=== PATIENT | male | born 1970 | race Caucasian/White ===

== ENCOUNTER 2017-05-07 17:25 | Emergency (ER) | payer SELFPAY ==
--- NOTE | 2017-05-07 17:42 | PDOC ---
Rapid Medical Evaluation Time Seen by Provider: 05/07/17 17:39 Medical Evaluation: Allergies Allergy/AdvReac Type Severity Reaction Status Date / Time No Known Allergies Allergy Verified 05/07/17 17:39 I have performed a brief in-person evaluation of this patient. The patient presents with a chief complaint of: heart skipping beats today. Denies chest pain. HI 2 years ago with stent placement Pertinent physical exam findings: tachycardic with regular rhythm I have ordered the following: EKG, labs The patient will proceed to the ED for further evaluation. Senior Corporate Accountant is Dr. Flores
[2017-05-07 17:43] VITALS: TEMP 98; BMI 30.4
[2017-05-07 18:03] LABS: BASO % 1.2 % (0-2.0); EOS % 3.2 % (0-4.5); HEMATOCRIT 48.4 % (35.4-49); HEMOGLOBIN 16.1 GM/dL (11.7-16.9); LYMPH % 30.9 % (8-40); MCH 28.8 pg (25.7-33.7); MCHC 33.3 g/dl (32.0-35.9); MEAN CELL VOLUME 86.5 fl (80-96); MEAN PLT VOLUME 8.6 fl (7.5-11.1); MONO % 6.7 % (3.8-10.2); PLATELET COUNT 254 K/MM3 (134-434); RBC 5.59 M/mm3 (4.00-5.60); RDW 13.8 % (11.9-15.9); WHITE BLOOD COUNT 10.8 K/mm3 (4.0-10.0)
--- NOTE | 2017-05-07 18:15 | PDOC ---
History of Present Illness - General History Source: Patient Exam Limitations: No Limitations <Lupe Enriquez - Last Filed: 05/07/17 19:09> <Vanessa Davila - Last Filed: 05/07/17 22:59> - General Chief Complaint: Palpitations Stated Complaint: CHEST PAIN Time Seen by Provider: 05/07/17 17:39 - History of Present Illness Initial Comments: 05/07/17 18:45 The patient is a 46 year old male, with a significant past medical history of hypertension, hyperlipidemia, and an AL(3 year ago; s/p stent placement), who presents to the emergency department with intermittent palpitations since 06:00 this morning. The patient reports he was at work, when he began to feel his heart beating irregularly. Patient reports today was his last day at his current job, and has had a lot of added stress recently. Patient denies any associated chest pain, diaphoresis, palpitations, or lower extremity edema. Patient reports similar symptoms several months ago, for which he followed up with his PCP (Dr. Irwin) and Airport Maintenance Chief(Dr Browne), where he had a Nuclear stress test done, which was negative. Patient denies any recent weight loss, fever, chills, cough, headache, or dizziness. He endorses increased abdominal bloating, but denies any abdominal pain, nausea, vomiting, diarrhea, or constipation. He denies any dysuria, hematuria, frequency, or urgency. He reports travel to [place] about 1 month ago, but denies sick contacts. Allergies: NKDA Past Surgical History: Cardiac stentx1 Social History: Current everyday smoker. Social ETOH use. No recreational drug use PCP: Dr. Irwin Airport Maintenance Chief: Dr. Browne (Lupe Enriquez) Past History <Lupe Enriquez - Last Filed: 05/07/17 19:09> - Past Medical History Cardiac Disorders: Yes (AL) COPD: No HTN: Yes - Surgical History Cardiac Surgery: Yes (CARD STENT) - Suicide/Smoking/Psychosocial Hx Smoking History: Never smoked Have you smoked in the past 12 months: Yes Number of Cigarettes Smoked Daily: 4 Information on smoking cessation initiated: Yes Hx Alcohol Use: No Drug/Substance Use Hx: No Substance Use Type: None <Vanessa Davila - Last Filed: 05/07/17 22:59> - Past Medical History Allergies/Adverse Reactions: Allergies Allergy/AdvReac Type Severity Reaction Status Date / Time No Known Allergies Allergy Verified 05/07/17 17:39 Home Medications: Ambulatory Orders Aspirin 81 mg PO DAILY 05/07/17 Lisinopril [Prinivil] 5 mg PO DAILY 05/07/17 Metoprolol Tartrate [Lopressor -] 50 mg PO DAILY 05/07/17 Review of Systems - Review of Systems Able to Perform ROS?: Yes <Lupe Enriquez - Last Filed: 05/07/17 19:09> <Vanessa Davila - Last Filed: 05/07/17 22:59> - Review of Systems Comments:: 05/07/17 18:45 GENERAL/CONSTITUTIONAL: No fever or chills. No weakness. HEAD, EYES, EARS, NOSE AND THROAT: No change in vision. No ear pain or discharge. No sore throat. CARDIOVASCULAR: Yes palpitations. No chest pain or shortness of breath. RESPIRATORY: No cough, wheezing, or hemoptysis. GASTROINTESTINAL: Yes abdominal bloating. No abdominal pain, nausea, vomiting, diarrhea or constipation. GENITOURINARY: No dysuria, frequency, or change in urination. MUSCULOSKELETAL: No joint or muscle swelling or pain. No neck or back pain. SKIN: No rash NEUROLOGIC: No headache, vertigo, loss of consciousness, or change in strength/ sensation. ENDOCRINE: No increased thirst. No abnormal weight change. HEMATOLOGIC/LYMPHATIC: No anemia, easy bleeding, or history of blood clots. ALLERGIC/IMMUNOLOGIC: No hives or skin allergy. (Lupe Enriquez) *Physical Exam <Lupe Enriquez - Last Filed: 05/07/17 19:09> <Vanessa Davila - Last Filed: 05/07/17 22:59> - Vital Signs Last Vital Signs Temp Pulse Resp BP Pulse Ox 98.0 F 109 H 18 141/96 100 05/07/17 17:39 05/07/17 17:39 05/07/17 17:39 05/07/17 17:39 05/07/17 17:39 - Physical Exam Comments: 05/07/17 18:45 GENERAL: Awake, alert, and fully oriented, in no acute distress HEAD: No signs of trauma EYES: PERRLA, EOMI, sclera anicteric, conjunctiva clear ENT: Auricles normal inspection, hearing grossly normal, nares patent, oropharynx clear without exudates. Moist mucosa NECK: Normal ROM, supple, no lymphadenopathy, JVD, or masses LUNGS: Breath sounds equal, clear to auscultation bilaterally. No wheezes, and no crackles HEART: Tachycardic. Regular rhythm, normal S1 and S2, no murmurs, rubs or gallops ABDOMEN: Soft, nontender, normoactive bowel sounds. No guarding, no rebound. No masses EXTREMITIES: Normal range of motion, no edema. No clubbing or cyanosis. No cords, erythema, or tenderness NEUROLOGICAL: Cranial nerves II through XII grossly intact. Normal speech, normal gait SKIN: Warm, Dry, normal turgor, no rashes or lesions noted. (Lupe Enriquez) ED Treatment Course - LABORATORY CBC & Chemistry Diagram: 05/07/17 17:47 05/07/17 17:47 <Lupe Enriquez - Last Filed: 05/07/17 19:09> - LABORATORY CBC & Chemistry Diagram: 05/07/17 17:47 05/07/17 17:47 <Vanessa Davila - Last Filed: 05/07/17 22:59> - ADDITIONAL ORDERS Additional order review: Laboratory Results 05/07/17 05/07/17 05/07/17 21:55 21:20 17:47 PT with INR INR D-Dimer Cancelled Sodium Potassium Chloride Carbon Dioxide Anion Gap BUN Creatinine Creat Clearance w eGFR Random Glucose Calcium Total Bilirubin AST ALT Alkaline Phosphatase Creatine Kinase 2882 H Cancelled Creatine Kinase Index CK-MB (CK-2) Troponin I 0.02 Cancelled Total Protein Albumin TSH 05/07/17 05/07/17 05/07/17 17:47 17:47 17:47 PT with INR 11.30 INR 1.00 D-Dimer Sodium 138 Potassium 3.8 Chloride 105 Carbon Dioxide 25 Anion Gap 8 BUN 11 Creatinine 1.0 Creat Clearance w eGFR > 60 Random Glucose 102 Calcium 8.9 Total Bilirubin 0.8 AST 47 H ALT 74 Alkaline Phosphatase 44 L Creatine Kinase 3091 H Creatine Kinase Index 1.0 CK-MB (CK-2) 33.471 H Troponin I < 0.02 Total Protein 7.6 Albumin 4.5 TSH 0.93 05/07/17 17:47 RBC 5.59 MCV 86.5 MCHC 33.3 RDW 13.8 MPV 8.6 Neutrophils % 58.0 Lymphocytes % 30.9 Monocytes % 6.7 Eosinophils % 3.2 Basophils % 1.2 - Medications Given in the ED: ED Medications Discontinued Medications Generic Name Dose Route Start Last Admin Trade Name Merline PRN Reason Stop Dose Admin Sodium Chloride 2,000 ml 05/07/17 19:13 05/07/17 19:29 Normal Saline - IV 05/07/17 19:14 2,000 ml ONCE ONE Administration Sodium Chloride 1,000 ml 05/07/17 21:24 05/07/17 21:33 Normal Saline - IV 05/07/17 21:25 1,000 ml ONCE ONE Administration Medical Decision Making <Lupe Enriquez - Last Filed: 05/07/17 19:09> <Vanessa Davila - Last Filed: 05/07/17 22:59> - Medical Decision Making 05/07/17 19:41 Pt presents to the ED with palpitations. Denies other complaints. + persistent tachycardia. EKG shows sinus tachycardia. Differential included anemia, infection, hyperthyroidism, PE. Labs show normal TSH but elevated CK consistent with mild rhabdo. Will give IV hydration and recheck. Will consider d dimer to rule out PE if tachycardia is not resolved after IV hydration. 05/07/17 22:55 Tachycardia is resolved. Rhabdo somewhat improved after IV hydration. Recently in the ED with CK of 5000--statin stopped at that time. Will discharge home with instructions to follow up with his PMD and return to the ED for worsening symptoms. Patient will need a work up for persistently elevated CK. (Vanessa Davila) *DC/Admit/Observation/Transfer <Lupe Enriquez - Last Filed: 05/07/17 19:09> - Discharge Dispostion Admit: No <Vanessa Davila - Last Filed: 05/07/17 22:59> Diagnosis at time of Disposition: Palpitations Rhabdomyolysis Qualifiers: Rhabdomyolysis type: non-traumatic Qualified Code(s): M62.82 - Rhabdomyolysis - Discharge Dispostion Disposition: HOME Condition at time of disposition: Good - Patient Instructions Printed Discharge Instructions: DI for Rhabdomyolysis Additional Instructions: return to the ED for body or muscle aches, dark urine, abdominal pain, other new or worsening symptoms. Make sure that you follow up with your doctor--you have persistent mild rhabdomyolysis ( muscle breakdown) and you need further testing. Return for worsening palpitations, chest pain or shortness of breath. - Attestations Scribe Attestion: 05/07/17 18:45 Documentation prepared by Lupe Enriquez, acting as auditor medical claims for Vanessa Davila MD. (Lupe Enriquez)
[2017-05-07 18:17] LABS: PROTHROMBIN TIME (PATIENT) 11.3 SEC (9.98-11.88)
[2017-05-07 18:27] LABS: ALBUMIN 4.5 g/dl (3.4-5.0); ANION GAP 8 (8-16); BLOOD UREA NITROGEN 11 mg/dL (7-18); CALCIUM 8.9 mg/dL (8.5-10.1); CHLORIDE 105 mmol/L (98-107); CO2 25 mmol/L (21-32); GLUCOSE,RANDOM 102 mg/dL (74-106); POTASSIUM 3.8 mmol/L (3.5-5.1); SGOT/AST 47 U/L (15-37); SGPT/ALT 74 U/L (12-78); SODIUM 138 mmol/L (136-145)
[2017-05-07 18:40] LABS: ALK PHOS 44 U/L (45-117); BILIRUBIN,TOTAL 0.8 mg/dL (0.2-1.0); TOT PROT 7.6 g/dl (6.4-8.2)
[2017-05-07] MEDS ORDERED: SODIUM CHLORIDE 0.9% 1000 ML INFUS.BAG IV ONE ×2 (19:13→21:24)
[2017-05-07 23:03] VITALS: BP 134/70; PULSE 75
--- NOTE | 2017-05-08 08:52 | EKG ---
Test Reason : Blood Pressure : / mmHG Vent. Rate : 109 BPM Atrial Rate : 109 BPM P-R Int : 174 ms QRS Dur : 090 ms QT Int : 336 ms P-R-T Axes : 017 -07 022 degrees QTc Int : 452 ms SINUS TACHYCARDIA CANNOT RULE OUT ANTERIOR INFARCT , AGE UNDETERMINED ABNORMAL ECG NO PREVIOUS ECGS AVAILABLE Confirmed by RORO LEBLANC, SHANTELL ([id number]) on 05/08/2017 8:52:01 AM Referred By: Confirmed By:SHANTELL READ MD
== END 2017-05-07 23:07 | disposition home or self-care (01) ==
LOC: JER 17:25
DX: R00.2 Palpitations (principal); M62.82 Rhabdomyolysis; I25.10 Atherosclerotic heart disease of native coronary artery without angina pectoris; I10 Essential (primary) hypertension; Z95.5 Presence of coronary angioplasty implant and graft; I25.2 Old myocardial infarction; E78.00 Pure hypercholesterolemia, unspecified
CPT/HCPCS: 36415; 80053; 82550; 82553; 84443; 84484; 85025; 85610; 93005; 93010; 99284-25

== ENCOUNTER 2021-01-11 01:45 | Emergency (ER) | payer OTHER ==
[2021-01-11 02:08] VITALS: BMI 64.0
[2021-01-11] MEDS ORDERED: LACTATED RINGERS SOLUTION 1000 ML INFUS.BAG IV ONE (02:42)
[2021-01-11] MEDS ORDERED: ONDANSETRON 4 MG/2 ML VIAL IVPUSH ONE (02:42)
[2021-01-11 03:01] LABS: PH,URINE 5.5 (5.0-8.0); URINE APPEARANCE CLEAR; URINE BILIRUBIN NEGATIVE (NEGATIVE); URINE COLOR YELLOW; URINE GLUCOSE (UA) NEGATIVE (NEGATIVE); URINE KETONE NEGATIVE (NEGATIVE); URINE LEUK ESTERASE NEGATIVE (NEGATIVE); URINE NITRITE NEGATIVE (NEGATIVE); URINE PROTEIN NEGATIVE (NEGATIVE)
[2021-01-11] MEDS ORDERED: ONDANSETRON 4 MG/2 ML VIAL ONE (03:03)
[2021-01-11 03:09] LABS: EOS % 3.3 % (0-4.5); HEMATOCRIT 47.6 % (35.4-49); HEMOGLOBIN 16.3 GM/dL (11.7-16.9); LYMPH % 18.9 % (8-40); MCH 29.9 pg (25.7-33.7); MCHC 34.2 g/dl (32.0-35.9); MEAN CELL VOLUME 87.3 fl (80-96); MEAN PLT VOLUME 8.1 fl (7.5-11.1); NEUT % 68.8 % (42.8-82.8); PLATELET COUNT 249 10^3/uL (134-434); RBC 5.45 M/mm3 (4.00-5.60); RDW 13.7 % (11.9-15.9); WHITE BLOOD COUNT 10.2 K/mm3 (4.0-10.0)
[2021-01-11 03:14] LABS: INR 1.01 (0.83-1.09); PROTHROMBIN TIME (PATIENT) 11.3 SEC (9.7-13.0)
[2021-01-11 03:17] LABS: ACTIVATED PTT 31.3 SECONDS (25.2-36.5)
[2021-01-11 03:32] LABS: CALCIUM 8.8 mg/dL (8.5-10.1); CO2 28 mmol/L (21-32)
[2021-01-11 03:35] LABS: SGOT/AST 59 U/L (15-37); SGPT/ALT 100 U/L (13-61)
[2021-01-11 03:36] LABS: BILIRUBIN,TOTAL 0.3 mg/dL (0.2-1)
[2021-01-11 03:38] LABS: ALK PHOS 38 U/L (45-117)
[2021-01-11 04:05] LABS: ALBUMIN 4.1 g/dl (3.4-5.0); ANION GAP 7 MMOL/L (8-16); BLOOD UREA NITROGEN 19.2 mg/dL (7-18); CHLORIDE 106 mmol/L (98-107); GLUCOSE,RANDOM 100 mg/dL (74-106); LIPASE 111 U/L (73-393); SODIUM 141 mmol/L (136-145); TOT PROT 7.3 g/dl (6.4-8.2)
[2021-01-11 05:20] VITALS: BP 131/81; PULSE 71; TEMP 98.8
== END 2021-01-11 05:30 | disposition home or self-care (01) ==
LOC: JER 01:45
PROC: 3E033GC Introduction of Other Therapeutic Substance into Peripheral Vein, Percutaneous Approach (ICD-10-PCS; principal; 2021-01-11)
DX: K52.9 Noninfective gastroenteritis and colitis, unspecified (principal)
CPT/HCPCS: 36415; 71046-TC-FY; 80053; 81003; 82550; 82553; 83690; 84484; 85025; 85610; 85730; 87086; 93005; 93010; 99285-25; C9803; U0003; U0005